=== PATIENT | male | born 2000 | race Caucasian/White ===

== ENCOUNTER 2021-10-23 15:15 | Emergency (ER) | payer MEDICAID ==
[~2021-10-23] VITALS: Ht 167.6 cm; Wt 48.6 kg
[2021-10-23 15:17] VITALS: TEMP 98.8
[2021-10-23 15:49] LABS: BASO # 0.1 K/mm3 (0.0-0.2); BASO % 0.6 % (0.0-2.0); EOS % 0.4 % (0.0-4.0); GRAN # 7.7 K/mm3 (1.4-6.5); GRAN % 75.8 % (42.2-75.2); HEMATOCRIT 42.5 % (36.0-47.0); HEMOGLOBIN 15.4 g/dl (12.5-16.1); LYMPH # 1.6 K/mm3 (1.2-3.4); LYMPH % 15.2 % (20.0-51.0); MEAN CELL VOLUME 86 fl (80.0-95.0); MEAN CORPUSCULAR HEMOGLOBIN 31 pg (26-32); MEAN CORPUSCULAR HGB CONC 36 g/dl (33.0-37.0); MEAN PLATELET VOLUME 8.9 fl (7.4-10.4); MONO # 0.7 K/mm3 (0.1-0.6); MONO % 6.6 % (1.7-9.3); PLATELET COUNT 231 K/mm3 (130-400); RED BLOOD COUNT 4.96 M/mm3 (4.20-5.60); REDCELL DISTRIBUTION WIDTH-CV 11.3 % (11.5-14.5)
[2021-10-23 16:11] LABS: ALBUMIN 4.3 gm/dL (3.5-5.0); BILIRUBIN,TOTAL 1.7 mg/dL (0.2-1.2); CALCIUM 9.4 mg/dL (8.4-10.2); CREATININE, serum 0.95 mg/dL (0.72-1.25); POTASSIUM 3.7 mmol/L (3.5-4.5); TOTAL PROTEIN 7.8 gm/dL (6.2-8.1)
[2021-10-23 19:19] LABS: COLLECTION METHOD CLEAN CATCH
[2021-10-23 19:26] LABS: MUCOUS Present (NOT PRESENT); PH 6 (5-8); SQUAMOUS EPITHELIAL 0-2 /hpf (0-10); URINE APPEARANCE Clear (CLEAR/HAZY); URINE BACTERIA None Seen /hpf (NONE SEEN); URINE BILIRUBIN Negative (NEGATIVE); URINE BLOOD Negative (NEGATIVE); URINE COLOR Yellow (YELLOW); URINE GLUCOSE Negative (NEGATIVE); URINE KETONE Negative (NEGATIVE); URINE LEUKOCYTE ESTERASE Negative (NEGATIVE); URINE NITRATE Negative (NEGATIVE); URINE PROTEIN(semi-quant) Negative (NEGATIVE); URINE RBC 0-2 /hpf (0-2); URINE UROBILINOGEN Negative (NEGATIVE)
[2021-10-23 21:38] VITALS: BP 117/78; PULSE 99
== END 2021-10-23 21:47 ==
LOC: COL.ER 15:15
PROVIDERS: Family Medicine
DX: S32.051A Stable burst fracture of fifth lumbar vertebra, initial encounter for closed fracture (principal); S32.041A Stable burst fracture of fourth lumbar vertebra, initial encounter for closed fracture; W28.XXXA Contact with powered lawn mower, initial encounter
CPT/HCPCS: J1170; J2360; J3010; Q9967